=== PATIENT | female | born 1955 | race Caucasian/White ===

== ENCOUNTER 2018-10-21 09:25 | Emergency (ER) | payer OTHER ==
[~2018-10-21] VITALS: Ht 162.6 cm; Wt 79.4 kg
[2018-10-21 09:27] VITALS: BP 176/85
--- NOTE | 2018-10-21 09:40 | NUR ---
PT BIB SELF C/O PUTTING NAIL GLUE IN EYE INSTEAD OF EYE DROPS. PT REPORTS NO PAIN, BUT STATES THERE IS IRRITATION. PT CAN OPEN EYE, STATES BLURRY VISION, EYE RED, EYE LID EDEMA PRESENT. [facility] EMT TAKEN PT TO EYE WASH STATION TO WASH EYE FOR 15MIN. VSS. ER MD TO SEE PT. MEDHX:DENIES RX:EYE DROPS
[2018-10-21] MEDS ORDERED: TETRACAINE HCL/PF 0.5% OPTH 4 ML BTL OP ONE (09:45)
[2018-10-21] MEDS ORDERED: FLUORESCEIN OPTH STRIP 0.6 MG OP ONE (09:45)
--- NOTE | 2018-10-21 09:49 | NUR ---
Patient to bed 4. RN evaluating patient at bedside.
--- NOTE | 2018-10-21 10:05 | NUR ---
EYE DROPS AT BEDSIDE FOR MD PROCEDURE
--- NOTE | 2018-10-21 10:20 | NUR ---
ER MD PERFORMING BEDSIDE PROCEDURE
[2018-10-21] MEDS ORDERED: ERYTHROMYCIN 0.5% OPTH OINT 1 GM TUBE OP SCH (10:40)
[2018-10-21 11:20] VITALS: BP 166/86
--- NOTE | 2018-10-21 11:20 | NUR ---
Patient discharged with v/s stable. Written and verbal after care instructions given and explained. Patient verbalized understanding. Ambulatory with steady gait. All questions addressed prior to discharge. Advised to follow up with PMD.
== END 2018-10-21 11:20 | disposition home or self-care (01) ==
LOC: MED 09:25
DX: S05.02XA Injury of conjunctiva and corneal abrasion without foreign body, left eye, initial encounter (principal); F17.200 Nicotine dependence, unspecified, uncomplicated; Z88.0 Allergy status to penicillin; X58.XXXA Exposure to other specified factors, initial encounter; Y93.89 Activity, other specified; Y92.89 Other specified places as the place of occurrence of the external cause; Y99.8 Other external cause status
CPT/HCPCS: 99283